=== PATIENT | female | born 1990 ===

== ENCOUNTER 2019-07-17 14:30 | Inpatient (IN) | payer OTHER ==
[~2019-07-17] VITALS: Ht 149.9 cm; Wt 68.5 kg
[2019-08-02] MEDS ORDERED: PRENATAL TABLE1 EAC1 PO (23:36)
[2019-08-03] MEDS ORDERED: DIALYVITE 800-1 EACH PO (00:06)
== END 2019-08-05 16:25 | disposition home or self-care (01) | DRG 807 ==
LOC: OB/GYN 08-03 07:58 → LDR 08-03 07:58 → OB/GYN 08-03 15:49
PROVIDERS: ADMIT Obstetrics & Gynecology
PROC: 10E0XZZ Delivery of Products of Conception, External Approach (ICD-10-PCS; principal; 2019-08-03)
PROC: 0KQM0ZZ Repair Perineum Muscle, Open Approach (ICD-10-PCS; 2019-08-03)
PROC: 3E033VJ Introduction of Other Hormone into Peripheral Vein, Percutaneous Approach (ICD-10-PCS; 2019-08-03)
PROC: 10907ZC Drainage of Amniotic Fluid, Therapeutic from Products of Conception, Via Natural or Artificial Opening (ICD-10-PCS; 2019-08-03)
PROC: 4A1HXCZ Monitoring of Products of Conception, Cardiac Rate, External Approach (ICD-10-PCS; 2019-08-03)
DX: O70.1 Second degree perineal laceration during delivery (principal); Z37.0 Single live birth; Z3A.39 39 weeks gestation of pregnancy

== ENCOUNTER 2019-08-02 23:35 | Outpatient (CLI) | payer OTHER ==
[2019-08-02] MEDS ORDERED: PRENATAL TABLE1 EAC1 PO (23:36)
[2019-08-03] MEDS ORDERED: DIALYVITE 800-1 EACH PO (00:06)
== END 2019-08-03 08:25 | disposition still patient (30) ==
LOC: OBS/DEL 23:35
DX: O47.1 False labor at or after 37 completed weeks of gestation (principal)